=== PATIENT | female | born 1955 | race Caucasian/White ===

== ENCOUNTER 2017-03-29 17:00 | Emergency (ER) | payer OTHER ==
--- NOTE | ~2017-03-29 | CR63 ---
[facility] A Service of [facility] RADIOLOGY TEXT RESULTS PATIENT: ANTONELLA JERRY LOCATION: SED : 57 UNIT #: [id number] AGE: [address]: JAYY GONZALEZ SEX: F ORDER DR: [id number] [place] [id number] E MR#: [id number] Acc #: [id number] NAME: ANTONELLA JERRY : 1955 SEX: F STUDY DATE/TIME: 03/29/2017 21:08 UNIT: SED ROOM: STUDY DESCRIPTION: CR Chest 2 View Attending Physician: Jayy Gonzalez Ordering Physician: Jayy Gonzalez Primary Care Physician: [facility], [facility]. MEDICAL IMAGING REPORT This report is preliminary unless electronic signature is present. EXAM Chest 2 views dated 03/29/2017 COMPARISON Single-view chest dated 03/16/2016. HISTORY Shortness of air for 2 days along with low back pain. History of left breast cancer. FINDINGS 2 views of the chest were obtained. No obvious lung mass is seen. There is some hazy opacity noted in the left lateral lower chest which does not correlate to any significant abnormality on in the lateral view. Minimal subsegmental atelectasis is probably represent in the left lingula. S-shaped scoliosis of the thoracolumbar spine is noted with a dextrothoracic and a levo-thoracolumbar junction or components. Multilevel endplate osteophytes are noted in the thoracic spine involving more than 4 contiguous vertebral bodies. Diffuse idiopathic skeletal hyperostosis (DISH) is in the differential consideration. Benign. Dictated by... Yonatan Clarke M.D. THIS IS AN ELECTRONICALLY VERIFIED REPORT Yonatan Clarke M.D. at 03/31/2017 7:32 PM CPR/aa TD: 03/30/2017 10:55 [facility] A Service [facility] RADIOLOGY TEXT RESULTS PATIENT: ANTONELLA JERRY LOCATION: SED : 57 UNIT #: [id number] AGE: [address]: JAYY GONZALEZ SEX: F ORDER DR: NILDA #: [id number] MEDICAL IMAGING REPORT Page 1 of 1
--- NOTE | ~2017-03-29 | CT4 ---
[facility] A Service [facility] RADIOLOGY TEXT RESULTS PATIENT: ANTONELLA JERRY LOCATION: SED : 57 UNIT #: [id number] AGE: [address]: JAYY GONZALEZ SEX: F ORDER DR: [id number] [place] [id number] E MR#: [id number] Acc #: [id number] NAME: ANTONELLA JERRY : 1955 SEX: F STUDY DATE/TIME: 03/29/2017 19:34 UNIT: SED ROOM: STUDY DESCRIPTION: CT Abd and Pelv Wo Cont Attending Physician: Jayy Gonzalez Ordering Physician: Jayy Gonzalez [facility] REPORT This report is preliminary unless electronic signature is present. EXAM CT abdomen and pelvis without contrast HISTORY Lower back pain for [address] abdomen and pelvis 03/15/[address] exam was performed with one or more of the following radiation dose reduction techniques: automatic control, adjustment of mA and/or kV according to patient size, and iterative reconstruction. FINDINGS Axial images form through the abdomen and pelvis without contrast. Multiplanar reconstructed images reviewed at a workstation. ABDOMEN: Lung bases unremarkable except for a small amount of left basilar atelectasis. Fatty liver. Spleen gallbladder kidneys and adrenal glands unremarkable. The pancreas appears normal. No free air or free fluid. The visualized GI tract unremarkable. Small fat-containing umbilical hernia. PELVIS: Bladder unremarkable. Uterus unremarkable. Moderate to severe thoracolumbar scoliosis with mild multilevel degenerative disc disease and multilevel facet arthropathy. IMPRESSION 1. No acute intraabdominal or intrapelvic pathology identified. 2. Moderate to severe thoracolumbar scoliosis with multilevel degenerative disc changes and facet arthropathy. This may be a significant contributing factor to the patient's low back pain. [facility] A Service [facility] RADIOLOGY TEXT RESULTS PATIENT: ANTONELLA JERRY LOCATION: SED : 57 UNIT #: [id number] AGE: [address]: JAYY GONZALEZ SEX: F ORDER DR: Dictated by... Latha England M.D. THIS IS AN ELECTRONICALLY VERIFIED REPORT Latha England M.D. at 03/30/2017 1:03 PM TANIYA/manjitr TD: 03/30/2017 04:34 JOB #: [id number] MEDICAL IMAGING REPORT Page 1 of 1
[~2017-03-29 17:00] MED LIST: ACCUPRIL PO; ACIPHEX20 MG; AL-MAG HYDROX-S30 M1 PO; ALBUTEROL MININEB NEB; AMITRIPTYLINE H50 MG PO; AMITRYPTYLINE PO; AMOXICILLIN500 M1 PO; ATENOLOL PO; BENZONATATE; BISACODYL EC5 M1 PO; CEFDINIR300 MG PO; COLACE PO; COMBIVENT U/D3 M2 INH; COMBIVENT U/D3 ML INH; CORTISONE14 GM TOP; FLOMAX0.4 M1 PO; HUMIBID-LA600 MG PO; HYDROCODONE-APA1 T55 PO; K-DUR20 ME1 PO; LASIX PO; LEVAQUIN750 M1 PO; LIPITOR; LIPITOR PO; LIPITOR20 MG PO; LORTAB 10 MG-3473 ML PO; MULTI VITAMIN1 EACH PO; NEOSPORIN TOP; NORVASC PO; NORVASC10 MG PO; NYSTATIN5 ML PO; OCEAN45 ML; OXYGEN; PAXIL PO; PHENERGAN25 M1 PO; PREDNISONE; PREDNISONE PO; PREDNISONE10 MG PO; PRILOSEC PO; PRILOSEC40 MG PO; PROVENTIL0.83 MG/ML IH; SIMETHICONE GA125 MG PO; SINGULAIR PO; SPIRIVA18 MCG INH; SYMBICORT INH; TAMIFLU75 M1 PO; ZANTAC PO; ZITHROMAX PO; [UNRECOGNIZED DRUG - OTHER] TOP; [UNRECOGNIZED DRUG - OTHER] TOP
[2017-03-29 17:29] LABS: URINE SOURCE CLEAN CATCH
[2017-03-29 17:32] LABS: URINE APPEARANCE CLEAR; URINE BILIRUBIN NEG (NEG); URINE BLOOD TRACE-INTACT (NEG); URINE COLOR YELLOW; URINE GLUCOSE NEG (NORM); URINE KETONE NEG (NEG); URINE LEUKOCYTE ESTERASE NEG (NEG); URINE NITRATE NEG (NEG); URINE PH 5.5 (5-8); URINE PROTEIN NEG (NEG); URINE SPECIFIC GRAVITY 1.025 (1.003-1.035); URINE UROBILINOGEN 0.2 MG/DL (NORM)
[2017-03-29 17:36] LABS: MICRO INDICATED? YES
[2017-03-29 17:41] LABS: CULTURE INDICATED? NO; URINE BACTERIA NEG (NEG); URINE MUCUS PRESENT; URINE RBC 0-2 /[HPF] (0-2); URINE SQUAMOUS EPITHELIAL CELL MODERATE /[HPF]; URINE WBC 0-2 /[HPF] (0-5)
[2017-03-29 18:09] LABS: BASOPHIL# 0.1 X10e3 (0-0.3); BASOPHIL% 1.2 % (0-2.5); EOSINOPHIL# 0.2 X10e3 (0-0.7); EOSINOPHIL% 1.6 % (0.0-7.0); HEMATOCRIT 43.9 % (35.0-45.0); HEMOGLOBIN 14.3 gm/dL (12.0-16.0); LYMPHOCYTE# 1.5 X10e3 (1.0-3.5); LYMPHOCYTE% 13.8 % (17.0-45.0); MEAN CELL VOLUME 81.5 FL (83-96); MEAN CORPUSCULAR HEMOGLOBIN 26.5 PG (28-34); MEAN CORPUSCULAR HGB CONC 32.6 g/dL (30-36); MONOCYTE# 0.8 X10e3 (0-1.0); MONOCYTE% 7.2 % (3.0-12.0); NEUTROPHIL% 76.2 % (40-75); PLATELET COUNT 304 X10e3 (140-420); RED BLOOD COUNT 5.38 X10e (3.90-5.30); WHITE BLOOD COUNT 10.5 X10e3 (4.0-10.5)
[2017-03-29 18:10] LABS: DIFF IND NO
[2017-03-29 18:31] LABS: ALBUMIN SERUM 3.9 g/dL (3.5-5.0); BILIRUBIN,TOTAL 0.3 mg/dL (0.2-2.0); BUN/CREATININE RATIO 16.66; CALCIUM SERUM 8.8 mg/dL (8.4-10.2); CREATININE SERUM 0.9 mg/dL (0.6-1.4); GLOM FILT RATE Estimated 69.1 mL/min (>60); POTASSIUM 3.4 mmol/L (3.5-5.1); PROTEIN TOTAL SERUM 7.3 g/dL (6.0-8.3)
== END 2017-03-29 22:03 | disposition home or self-care (01) ==
LOC: SED 17:00
PROVIDERS: Nurse Practitioner
DX: S39.012A Strain of muscle, fascia and tendon of lower back, initial encounter (principal); M51.16 Intervertebral disc disorders with radiculopathy, lumbar region; I10 Essential (primary) hypertension; Z87.442 Personal history of urinary calculi; X58.XXXA Exposure to other specified factors, initial encounter; Y92.9 Unspecified place or not applicable
CPT/HCPCS: 36415; 71020; 74176; 80053; 81003; 85025; 94640; 96374; 96375; 99284; J1170; J1885; J2405